=== PATIENT | female | born 1980 | race Asian ===

== ENCOUNTER 2019-06-16 16:53 | Emergency (ER) | payer OTHER ==
[~2019-06-16] VITALS: Ht 170.2 cm; Wt 70.3 kg
[2019-06-16 16:53] VITALS: BP_SYST 122
--- NOTE | 2019-06-16 16:57 | NUR ---
Patient triaged and placed in waiting room. VSS and patient appears in no acute distress at this time. Accompanied by FAMILY, awaiting available bed, and MD notified of need for MSE.
--- NOTE | 2019-06-16 18:42 | NUR ---
BROUGHT BACK TO BED #7 AND REPORT GIVEN TO SHELIA
--- NOTE | 2019-06-16 18:48 | NUR ---
Pt brought to ED by family member. Pt awake, alert, oriented x4. Pt states that she has had cold/cough like symptoms with chest congestion, nasal congestion and low-grade fever for approx 1 week. Pt states that she went to urgent care on the 1st and was given. Pt states that she has been taking both of the the nyquil/dayquil and promethazine. Pt states that her symptoms persisted and she decided to come to ED. Pt denies chest pain, nausea, vomiting, diarrhea, shortness of breath. pt denies any other medical complaint at this time. Pt states he childre were sick 2 weeks ago. Pt resting in ED bed. VSS
--- NOTE | 2019-06-16 20:00 | NUR ---
Pt's Urine Preg neg, and Flu swab sent
--- NOTE | 2019-06-16 20:22 | NUR ---
Dr. Galo bedside for Pt eval
[2019-06-16] MEDS ORDERED: ACETAMINOPHEN 500 MG TABLET PO ONE (20:30)
[2019-06-16] MEDS ORDERED: NACL 0.9% 1,000 ML IV ONE (20:30)
[2019-06-16 21:05] LABS: BASOPHILS % (AUTO) 0.6 % (0.0-2.0); EOSINOPHILS % (AUTO) 0.4 % (0.0-4.0); HEMATOCRIT 37.6 % (36-48); HEMOGLOBIN 12.7 g/dL (12.0-16.0); LYMPHOCYTES # (AUTO) 1.7 K/uL (1.0-5.5); LYMPHOCYTES % (AUTO) 18.8 % (20.5-51.5); MEAN CORPUSCULAR HEMOGLOBIN 28 pg (27-31); MEAN CORPUSCULAR HGB CONC 34 % (32-36); MEAN CORPUSCULAR VOLUME 82 fL (79.0-98.0); MONOCYTES # (AUTO) 0.9 K/uL (0.0-1.0); MONOCYTES % (AUTO) 10.4 % (1.7-9.3); NEUTROPHILS # (AUTO) 6.2 K/uL (1.8-7.7); NEUTROPHILS % (AUTO) 69.8 % (40.0-70.0); PLATELET COUNT (AUTO) 275 K/uL (130-430); RED BLOOD CELL COUNT(AUTO) 4.56 MIL/uL (4.2-6.2); RED CELL DISTRIBUTION WIDTH 14.2 % (9.0-15.0); WHITE BLOOD COUNT (AUTO) 8.9 K/uL (4.8-10.8)
[2019-06-16 21:17] LABS: CALCIUM 8.6 mg/dL (8.4-11.0); CREATININE 0.83 mg/dL (0.55-1.30); POTASSIUM 3.1 mmol/L (3.5-5.1)
--- NOTE | 2019-06-16 21:18 | NUR ---
VSS no s/s of acute distress Resting on gurney rails up
[2019-06-16 21:22] LABS: ALBUMIN 3.9 g/dL (3.4-4.8); TOTAL BILIRUBIN 0.5 mg/dL (0.0-1.0)
[2019-06-16] MEDS ORDERED: POTASSIUM CHLORIDE 20 MEQ TAB.PRT.SR PO ONE (22:00)
[2019-06-16 22:45] VITALS: BP_SYST 132
--- NOTE | 2019-06-16 22:45 | NUR ---
Patient given written and verbal discharge instructions and verbalizes understanding. ER MD discussed with patient the results and treatment provided. Patient in stable condition. ID arm band removed. IV catheter removed intact and dressing applied, no active bleeding. Rx of Bromfed given. Patient educated on pain management and to follow up with PMD. Pain Scale 0/10 Opportunity for questions provided and answered. Medication side effect fact sheet provided.
== END 2019-06-16 22:45 | disposition home or self-care (01) ==
LOC: SED 16:53
DX: J06.9 Acute upper respiratory infection, unspecified (principal); E87.6 Hypokalemia; I10 Essential (primary) hypertension
CPT/HCPCS: 36415; 71045; 80053; 85025; 86710; 99284; J7030